=== PATIENT | male | born 1935 | race Caucasian/White ===

== ENCOUNTER 2017-11-24 05:40 | Inpatient (IN) | payer MEDICARE ==
[~2017-11-24] VITALS: Ht 177.8 cm; Wt 117.9 kg
[2017-11-24] MEDS ORDERED: ONDANSETRON HCL 4 MG/2 ML VIAL ONE (06:28)
[2017-11-24 06:29] LABS: BASOPHILS % (AUTO) 0.1 % (0.0-5.0); HEMATOCRIT 48.7 % (42-54); LYMPHOCYTES % (AUTO) 6.1 % (21.0-51.0); MEAN CORPUSCULAR HEMOGLOBIN 32.8 pg (27.0-33.0); MEAN CORPUSCULAR HGB CONC 34.5 g/dL (32.0-36.0); MEAN CORPUSCULAR VOLUME 95.1 fL (79-99); MONOCYTES % (AUTO) 20.9 % (3.0-13.0); NEUTROPHILS % (AUTO) 72.9 % (40.0-77.0); NUCLEATED RED BLOOD CELLS 0.1 % (0.0-0.19); PLATELET COUNT (AUTO) 246 K/uL (130-400); RED BLOOD CELL COUNT(AUTO) 5.12 MIL/uL (4.50-6.20); RED CELL DISTRIBUTION WIDTH 13.7 % (11.0-15.5)
[2017-11-24] MEDS ORDERED: CHLORPROMAZINE HCL 25 MG/ML 1ML AMP ONE (06:29)
[2017-11-24] MEDS ORDERED: MORPHINE SULFATE 4 MG/1ML SYG ONE ×2 (06:30→07:53)
[2017-11-24 06:37] LABS: CREATININE 1.8 mg/dL (0.5-1.5); POTASSIUM 4.1 mmol/L (3.5-5.1)
[2017-11-24 06:42] LABS: ALBUMIN 3.8 g/dL (3.5-5.0); BILIRUBIN,TOTAL 0.8 mg/dL (0.2-1.0); TOTAL PROTEIN, SERUM 8.1 g/dL (6.0-8.3)
[2017-11-24] MEDS ORDERED: SODIUM CHLORIDE 0.9% 1000ML 1,000 ML IV ONE (11:11)
[2017-11-24] MEDS ORDERED: MAG HYDROX/AL HYDROX/SIMETH ES 30 ML SUSP UDCUP PO PRN (11:30)
[2017-11-24] MEDS ORDERED: LIDOCAINE HCL-MPF 1% 2ML VIAL IVP PRN (11:30)
[2017-11-24] MEDS ORDERED: NITROGLYCERIN 0.4 MG SL TAB SL PRN (11:30)
[2017-11-24] MEDS ORDERED: ACETAMINOPHEN 325 MG TAB PO PRN ×2 (11:30)
[2017-11-24] MEDS ORDERED: GUAIFENESIN-DM 200/20 MG 10 ML PO PRN (11:30)
[2017-11-24] MEDS ORDERED: POTASSIUM CHLORIDE 20MEQ/100ML 100 ML IV PRN (11:30)
[2017-11-24] MEDS ORDERED: HYDRALAZINE HCL 20 MG/ML VIAL IV PRN (11:30)
[2017-11-24] MEDS ORDERED: LACTULOSE 20 GM/30 ML UDCUP PO PRN (11:30)
[2017-11-24] MEDS ORDERED: MORPHINE SULFATE 2 MG/ML 1ML SYG IV PRN (11:30)
[2017-11-24] MEDS ORDERED: ONDANSETRON HCL 4 MG/2 ML VIAL IV PRN (11:30)
[2017-11-24] MEDS ORDERED: POTASSIUM CHLORIDE 10% ELIXIR 20 MEQ/15 ML UDCUP PO PRN (11:30)
[2017-11-24] MEDS ORDERED: ACETAMINOPHEN-CODEINE 300/30MG TAB PO PRN ×2 (11:30)
[2017-11-24] MEDS ORDERED: MORPHINE SULFATE 4 MG/1ML SYG IV PRN (11:30)
[2017-11-24] MEDS ORDERED: DIATR MEGLU/DIATRIZOATE SODIUM 30 ML BOTTLE PO ONE (11:52)
[2017-11-24 12:52] VITALS: BP 117/57
[2017-11-24] MEDS ORDERED: FUROSEMIDE 10 MG/ML 2ML VIAL ONE (14:56)
[2017-11-24 16:00] VITALS: BP 120/72
[2017-11-24 19:34] VITALS: BP 132/73
[2017-11-24] MEDS: LEVOFLOXACIN 500 MG/D5W 100 ML 100 ML IV SCH (20:32)
[2017-11-24] MEDS: SODIUM CHLORIDE 0.9% 1000ML 1,000 ML IV SCH (20:32)
[2017-11-24] MEDS: FAMOTIDINE/PF 20 MG/2 ML VIAL IV SCH (20:32)
[2017-11-24] MEDS: METRONIDAZOLE 500MG/100ML BAG 100 ML IV SCH (22:45)
[2017-11-24 23:23] VITALS: BP 125/70
[2017-11-25 01:32] LABS: APPEARANCE,URINE Clear (CLEAR); BILIRUBIN,URINE Negative (NEGATIVE); COLOR,URINE Yellow (YELLOW); GLUCOSE, URINE (UA) Negative (NEGATIVE); KETONES,URINE Negative (NEGATIVE); LEUKOCYTE ESTERASE ,URINE Negative (NEGATIVE); NITRATE,URINE Negative (NEGATIVE); OCCULT BLOOD,URINE Nonhemolyzed Trace (NEGATIVE); PROTEIN,URINE Trace (NEGATIVE)
[2017-11-25 02:07] LABS: BACTERIA,URINE None Seen /HPF (None Seen); MUCUS,URINE Moderate LPF (None Seen); RBC,URINE 0-1 /HPF (0-1); SQUAMOUS EPITHELIAL CELL,UR Few /LPF (0-2); WBC,URINE 0-1 /HPF (0-1)
[2017-11-25 03:55] VITALS: BP 120/66
[2017-11-25 05:56] LABS: HEMATOCRIT 42.5 % (42-54); MEAN CORPUSCULAR HEMOGLOBIN 32.5 pg (27.0-33.0); MEAN CORPUSCULAR HGB CONC 34.3 g/dL (32.0-36.0); MEAN CORPUSCULAR VOLUME 94.9 fL (79-99); PLATELET COUNT (AUTO) 185 K/uL (130-400); RED BLOOD CELL COUNT(AUTO) 4.48 MIL/uL (4.50-6.20); RED CELL DISTRIBUTION WIDTH 13.6 % (11.0-15.5); WHITE BLOOD COUNT (AUTO) 7.5 K/uL (4.8-10.8)
[2017-11-25 06:12] LABS: CREATININE 1.2 mg/dL (0.5-1.5); MAGNESIUM 2.1 mg/dL (1.80-2.40); PHOSPHORUS 2.8 mg/dL (2.5-4.9)
[2017-11-25] MEDS: SODIUM CHLORIDE 0.9% 1000ML 1,000 ML IV SCH ×2 (06:38→17:16)
[2017-11-25] MEDS: METRONIDAZOLE 500MG/100ML BAG 100 ML IV SCH ×3 (06:38→23:15)
[2017-11-25 07:46] VITALS: BP 137/68
[2017-11-25] MEDS: FAMOTIDINE/PF 20 MG/2 ML VIAL IV SCH ×2 (09:08→23:15)
[2017-11-25] MEDS: ENOXAPARIN SODIUM 40 MG/0.4 ML SYRINGE SQ SCH (09:19)
[2017-11-25 10:56] VITALS: BP 131/66
[2017-11-25 16:47] VITALS: BP 128/75
[2017-11-25 19:30] VITALS: BP 138/68
[2017-11-25 23:20] VITALS: BP 137/68
[2017-11-26] MEDS: SODIUM CHLORIDE 0.9% 1000ML 1,000 ML IV SCH ×2 (03:09→12:50)
[2017-11-26 03:25] VITALS: BP 148/70
[2017-11-26] MEDS: METRONIDAZOLE 500MG/100ML BAG 100 ML IV SCH ×3 (05:46→23:16)
[2017-11-26] MEDS ORDERED: ISOS20TA7 PO (07:45)
[2017-11-26] MEDS ORDERED: ATOR10 PO (07:45)
[2017-11-26] MEDS ORDERED: EZET10TA26 PO (07:45)
[2017-11-26] MEDS ORDERED: LISI2.5T2 PO (07:45)
[2017-11-26] MEDS ORDERED: MIRT15TA6 PO (07:45)
[2017-11-26] MEDS ORDERED: OMEP20TA25 PO (07:45)
[2017-11-26] MEDS ORDERED: NEBI10TA PO (07:45)
[2017-11-26] MEDS ORDERED: IPRA42SP NS (07:45)
[2017-11-26] MEDS ORDERED: AMLO10TA2 PO (07:45)
[2017-11-26 07:58] VITALS: BP 122/82
[2017-11-26] MEDS: FAMOTIDINE/PF 20 MG/2 ML VIAL IV SCH ×2 (08:27→21:41)
[2017-11-26] MEDS: ENOXAPARIN SODIUM 40 MG/0.4 ML SYRINGE SQ SCH (08:27)
[2017-11-26] MEDS ORDERED: MAGNESIUM 2GM PREMIX 50ML 50 ML IV SCH (09:45)
[2017-11-26 10:06] LABS: POTASSIUM 3.9 mmol/L (3.5-5.1)
[2017-11-26 11:06] VITALS: BP 121/67
[2017-11-26] MEDS: DEXTROSE 5 %-0.45 % NACL 1,000 ML IV SCH (12:50)
[2017-11-26 15:59] VITALS: BP 121/76
[2017-11-26 19:20] VITALS: BP 156/88
[2017-11-26] MEDS: LEVOFLOXACIN 500 MG/D5W 100 ML 100 ML IV SCH (21:41)
[2017-11-26 23:30] VITALS: BP 121/76
[2017-11-27] VITALS (22 sets, daily range): BP systolic 110–162; BP diastolic 62–81
[2017-11-27 05:14] LABS: HEMATOCRIT 42.1 % (42-54); MEAN CORPUSCULAR HEMOGLOBIN 32.5 pg (27.0-33.0); MEAN CORPUSCULAR HGB CONC 34.3 g/dL (32.0-36.0); MEAN CORPUSCULAR VOLUME 94.8 fL (79-99); PLATELET COUNT (AUTO) 201 K/uL (130-400); RED BLOOD CELL COUNT(AUTO) 4.44 MIL/uL (4.50-6.20); RED CELL DISTRIBUTION WIDTH 13.2 % (11.0-15.5); WHITE BLOOD COUNT (AUTO) 10.7 K/uL (4.8-10.8)
[2017-11-27 05:20] LABS: PARTIAL THROMBOPLASTIN TIME 28.7 SEC (26.3-35.5); PROTHROMBIN TIME 10.5 SEC (9.6-11.6)
[2017-11-27 05:21] LABS: CREATININE 0.9 mg/dL (0.5-1.5); MAGNESIUM 2.1 mg/dL (1.80-2.40); PHOSPHORUS 2.7 mg/dL (2.5-4.9); POTASSIUM 3.4 mmol/L (3.5-5.1)
[2017-11-27] MEDS: DEXTROSE 5 %-0.45 % NACL 1,000 ML IV SCH ×3 (08:14→23:37)
[2017-11-27] MEDS: FAMOTIDINE/PF 20 MG/2 ML VIAL IV SCH ×2 (08:14→23:37)
[2017-11-27] MEDS: METRONIDAZOLE 500MG/100ML BAG 100 ML IV SCH ×3 (08:14→22:05)
[2017-11-27] MEDS: ENOXAPARIN SODIUM 40 MG/0.4 ML SYRINGE SQ SCH ×2 (08:16→09:00)
[2017-11-27] MEDS ORDERED: MIDAZOLAM HCL 1 MG/ML 2ML VIAL ONE (18:45)
[2017-11-27] MEDS ORDERED: GLYCOPYRROLATE 0.2 MG/ML 5 ML VIAL ONE (18:45)
[2017-11-27] MEDS ORDERED: LIDOCAINE PF 2% 5ML ABBOJECT ONE (18:45)
[2017-11-27] MEDS ORDERED: NEOSTIGMINE METHYLSULFATE 1MG/ML IV ONE (18:45)
[2017-11-27] MEDS ORDERED: PROPOFOL 10 MG/ML 20ML VIAL IV ONE (18:45)
[2017-11-27] MEDS ORDERED: ONDANSETRON HCL 4 MG/2 ML VIAL ONE (18:45)
[2017-11-27] MEDS ORDERED: SUCCINYLCHOLINE 200MG/10ML SYR ONE (18:45)
[2017-11-27] MEDS ORDERED: DEXAMETHASONE SOD PHOSPHATE 10MG/ML 1ML VIAL ONE (18:45)
[2017-11-27] MEDS ORDERED: FENTANYL CITRATE PF 50 MCG/1 ML 2ML VIAL ONE ×2 (18:46→19:54)
[2017-11-28] VITALS (8 sets, daily range): BP systolic 137–165; BP diastolic 73–85
[2017-11-28 04:54] LABS: BASOPHILS % (AUTO) 0.3 % (0.0-5.0); HEMATOCRIT 43.7 % (42-54); MEAN CORPUSCULAR HEMOGLOBIN 32.6 pg (27.0-33.0); MEAN CORPUSCULAR HGB CONC 34.1 g/dL (32.0-36.0); MEAN CORPUSCULAR VOLUME 95.8 fL (79-99); MONOCYTES % (AUTO) 4.2 % (3.0-13.0); NEUTROPHILS % (AUTO) 93.5 % (40.0-77.0); PLATELET COUNT (AUTO) 208 K/uL (130-400); RED BLOOD CELL COUNT(AUTO) 4.56 MIL/uL (4.50-6.20); RED CELL DISTRIBUTION WIDTH 13.3 % (11.0-15.5); WHITE BLOOD COUNT (AUTO) 14.3 K/uL (4.8-10.8)
[2017-11-28 05:07] LABS: ALBUMIN 2.8 g/dL (3.5-5.0); TOTAL PROTEIN, SERUM 6.7 g/dL (6.0-8.3)
[2017-11-28] MEDS: METRONIDAZOLE 500MG/100ML BAG 100 ML IV SCH ×3 (06:43→23:59)
[2017-11-28] MEDS: FAMOTIDINE/PF 20 MG/2 ML VIAL IV SCH ×2 (09:15→20:35)
[2017-11-28] MEDS: DEXTROSE 5 %-0.45 % NACL 1,000 ML IV SCH (15:26)
[2017-11-28] MEDS: ENOXAPARIN SODIUM 40 MG/0.4 ML SYRINGE SQ SCH (18:57)
[2017-11-28] MEDS: LEVOFLOXACIN 500 MG/D5W 100 ML 100 ML IV SCH (20:35)
[2017-11-29 00:11] VITALS: BP 136/77
[2017-11-29 04:24] LABS: HEMATOCRIT 42.8 % (42-54); MEAN CORPUSCULAR HEMOGLOBIN 32.2 pg (27.0-33.0); MEAN CORPUSCULAR HGB CONC 33.8 g/dL (32.0-36.0); MEAN CORPUSCULAR VOLUME 95.2 fL (79-99); PLATELET COUNT (AUTO) 204 K/uL (130-400); RED BLOOD CELL COUNT(AUTO) 4.49 MIL/uL (4.50-6.20); RED CELL DISTRIBUTION WIDTH 13.3 % (11.0-15.5); WHITE BLOOD COUNT (AUTO) 12.7 K/uL (4.8-10.8)
[2017-11-29 04:37] VITALS: BP 141/64
[2017-11-29 04:40] LABS: POTASSIUM 3.4 mmol/L (3.5-5.1)
[2017-11-29 07:00] VITALS: BP 148/81
[2017-11-29] MEDS: POTASSIUM CHLORIDE 20 MEQ ERTAB PO PRN (07:45)
[2017-11-29] MEDS: METRONIDAZOLE 500MG/100ML BAG 100 ML IV SCH ×3 (07:46→20:35)
[2017-11-29] MEDS: FAMOTIDINE/PF 20 MG/2 ML VIAL IV SCH ×2 (09:30→20:34)
[2017-11-29] MEDS: ENOXAPARIN SODIUM 40 MG/0.4 ML SYRINGE SQ SCH (09:31)
[2017-11-29 11:00] VITALS: BP 135/71
[2017-11-29 16:00] VITALS: BP 124/78
[2017-11-29 20:00] VITALS: BP 134/56
[2017-11-29] MEDS: MIRTAZAPINE 15 MG TABLET PO SCH (20:34)
[2017-11-29] MEDS: ATORVASTATIN CALCIUM 10 MG TABLET PO SCH (20:34)
[2017-11-29] MEDS: ISOSORBIDE MONONITRATE 20 MG TABLET PO SCH (20:34)
[2017-11-30] VITALS: BP 122/60
[2017-11-30 04:00] VITALS: BP 140/82
[2017-11-30 04:40] LABS: POTASSIUM 3.2 mmol/L (3.5-5.1)
[2017-11-30] MEDS: METRONIDAZOLE 500MG/100ML BAG 100 ML IV SCH ×3 (05:45→20:48)
[2017-11-30 07:00] VITALS: BP 140/85
[2017-11-30] MEDS ORDERED: EZETIMIBE 10 MG TAB PO SCH (09:00)
[2017-11-30] MEDS: FAMOTIDINE/PF 20 MG/2 ML VIAL IV SCH ×2 (09:02→20:48)
[2017-11-30] MEDS: ENOXAPARIN SODIUM 40 MG/0.4 ML SYRINGE SQ SCH (09:03)
[2017-11-30] MEDS: NEBIVOLOL HCL 20 MG TABLET PO SCH (09:03)
[2017-11-30] MEDS: AMLODIPINE BESYLATE 5 MG TAB PO SCH (09:03)
[2017-11-30] MEDS: LISINOPRIL 2.5 MG TABLET PO SCH (09:03)
[2017-11-30 11:00] VITALS: BP 142/70
[2017-11-30 16:00] VITALS: BP 130/74
[2017-11-30] MEDS: MIRTAZAPINE 15 MG TABLET PO SCH (20:48)
[2017-11-30] MEDS: ATORVASTATIN CALCIUM 10 MG TABLET PO SCH (20:48)
[2017-11-30] MEDS: LEVOFLOXACIN 500 MG/D5W 100 ML 100 ML IV SCH (20:48)
[2017-11-30] MEDS: ISOSORBIDE MONONITRATE 20 MG TABLET PO SCH (20:48)
[2017-11-30] MEDS: EZETIMIBE 10 MG TAB PO SCH (20:50)
[2017-11-30 21:25] VITALS: BP 116/69
[2017-12-01] VITALS (7 sets, daily range): BP systolic 117–147; BP diastolic 62–79
[2017-12-01] MEDS: METRONIDAZOLE 500MG/100ML BAG 100 ML IV SCH ×3 (05:19→21:42)
[2017-12-01 05:50] LABS: CREATININE 0.9 mg/dL (0.5-1.5); POTASSIUM 3.4 mmol/L (3.5-5.1)
[2017-12-01] MEDS: AMLODIPINE BESYLATE 5 MG TAB PO SCH (09:11)
[2017-12-01] MEDS: LISINOPRIL 2.5 MG TABLET PO SCH (09:12)
[2017-12-01] MEDS: ENOXAPARIN SODIUM 40 MG/0.4 ML SYRINGE SQ SCH (09:12)
[2017-12-01] MEDS: NEBIVOLOL HCL 20 MG TABLET PO SCH (09:12)
[2017-12-01] MEDS: FAMOTIDINE/PF 20 MG/2 ML VIAL IV SCH ×2 (09:12→20:39)
[2017-12-01] MEDS: POTASSIUM CHLORIDE 20 MEQ ERTAB PO PRN ×2 (09:13→14:10)
[2017-12-01] MEDS: ISOSORBIDE MONONITRATE 20 MG TABLET PO SCH (20:38)
[2017-12-01] MEDS: ATORVASTATIN CALCIUM 10 MG TABLET PO SCH (20:38)
[2017-12-01] MEDS: MIRTAZAPINE 15 MG TABLET PO SCH (20:39)
[2017-12-01] MEDS: EZETIMIBE 10 MG TAB PO SCH (20:39)
[2017-12-02 04:00] VITALS: BP 144/77
[2017-12-02] MEDS: METRONIDAZOLE 500MG/100ML BAG 100 ML IV SCH ×2 (05:13→14:42)
[2017-12-02 07:30] VITALS: BP 136/87
[2017-12-02] MEDS: ENOXAPARIN SODIUM 40 MG/0.4 ML SYRINGE SQ SCH (09:00)
[2017-12-02] MEDS: FAMOTIDINE/PF 20 MG/2 ML VIAL IV SCH (09:40)
[2017-12-02] MEDS: AMLODIPINE BESYLATE 5 MG TAB PO SCH (09:40)
[2017-12-02] MEDS: LISINOPRIL 2.5 MG TABLET PO SCH (09:41)
[2017-12-02] MEDS: NEBIVOLOL HCL 20 MG TABLET PO SCH (09:41)
[2017-12-02 11:00] VITALS: BP 113/62
[2017-12-02 16:00] VITALS: BP 115/66
== END 2017-12-02 16:55 | disposition home or self-care (01) | DRG 354 ==
LOC: EDH 05:40 → EDHIP 09:30 → 3DH 12:41
PROVIDERS: ADMIT Internal Medicine; ATTEND Internal Medicine
PROC: 0WUF0JZ Supplement Abdominal Wall with Synthetic Substitute, Open Approach (ICD-10-PCS; principal; 2017-11-27 19:11)
DX: K56.609 Unspecified intestinal obstruction, unspecified as to partial versus complete obstruction (principal); N17.9 Acute kidney failure, unspecified; K43.9 Ventral hernia without obstruction or gangrene; E78.5 Hyperlipidemia, unspecified; I10 Essential (primary) hypertension; I25.10 Atherosclerotic heart disease of native coronary artery without angina pectoris; K66.0 Peritoneal adhesions (postprocedural) (postinfection); Z95.0 Presence of cardiac pacemaker; Z88.0 Allergy status to penicillin; Z82.49 Family history of ischemic heart disease and other diseases of the circulatory system
CPT/HCPCS: 36415; 71045; 74021; 74176; 80048; 80053; 81001; 82150; 83690; 83735; 84100; 84484; 85025; 85027; 85610; 85730; 93005; A4344; J0330; J1100; J1650; J1940; J1956; J2001; J2250; J2270; J2405; J2704; J2710; J3010; J3230; J3490; J7030; J7042; Q9963

== ENCOUNTER 2020-09-25 11:04 | Emergency (ER) | payer MEDICARE ==
[~2020-09-25 11:04] MED LIST: AMLO-258 PO; ATOR10 PO; EZET10TA48 PO; IPRA42SP NS; ISOS20TA7 PO; LISI2.5T2 PO; MIRT15TA6 PO; NEBI10TA PO; OMEP20TA25 PO
[2020-09-25] MEDS ORDERED: TRAMADOL HCL 50 MG TABLET ONE (11:42)
[2020-09-25] MEDS ORDERED: ACETAMINOPHEN 325 MG TAB ONE (11:42)
[2020-09-25] MEDS ORDERED: NEOMY SULF/BACITRA/POLYMYXIN B 1 EACH PACKET TP ONE (12:15)
== END 2020-09-25 14:38 | disposition home or self-care (01) ==
LOC: EDH 11:04
DX: S52.532A Colles' fracture of left radius, initial encounter for closed fracture (principal); S52.612A Displaced fracture of left ulna styloid process, initial encounter for closed fracture; S50.01XA Contusion of right elbow, initial encounter; S00.33XA Contusion of nose, initial encounter; I50.9 Heart failure, unspecified; E78.5 Hyperlipidemia, unspecified; I10 Essential (primary) hypertension; Z88.0 Allergy status to penicillin; W18.39XA Other fall on same level, initial encounter; Y93.01 Activity, walking, marching and hiking; Y92.89 Other specified places as the place of occurrence of the external cause; Y99.8 Other external cause status
CPT/HCPCS: 29125; 70450; 70486; 72125; 73110

== ENCOUNTER → 2021-12-26 | Outpatient (CLI) | payer MEDICARE ==
[~2021-12-26] MED LIST changes: -ISOS20TA7 PO; +ISOS20TA85 PO; +LISI2.5T13 PO; -LISI2.5T2 PO; +MIRT-22 PO; -MIRT15TA6 PO
== END | disposition home or self-care (01) ==
LOC: RAH 13:59
PROVIDERS: ATTEND Nurse Practitioner Family
DX: S02.2XXA Fracture of nasal bones, initial encounter for closed fracture (principal); S00.83XA Contusion of other part of head, initial encounter; J34.89 Other specified disorders of nose and nasal sinuses; M47.812 Spondylosis without myelopathy or radiculopathy, cervical region; M48.02 Spinal stenosis, cervical region; M25.78 Osteophyte, vertebrae; X58.XXXA Exposure to other specified factors, initial encounter; Y93.89 Activity, other specified; Y92.89 Other specified places as the place of occurrence of the external cause; Y99.8 Other external cause status
CPT/HCPCS: 70450; 70486; 72125

== ENCOUNTER → 2022-11-23 | Outpatient (CLI) | payer MEDICARE ==
[~2022-11-23] MED LIST changes: +OMEP20TA20 PO; -OMEP20TA25 PO; +REGADENOSON 0.4 MG/5 ML PF SYG IVP SCH
== END | disposition home or self-care (01) ==
LOC: RAH 08:42
PROVIDERS: ATTEND Internal Medicine Cardiovascular Disease
DX: R06.02 Shortness of breath (principal); I25.9 Chronic ischemic heart disease, unspecified; Z95.0 Presence of cardiac pacemaker
CPT/HCPCS: 78452; 96374; 93017; J2785; A9500 ×2

== ENCOUNTER → 2023-04-17 | Outpatient (CLI) | payer MEDICARE ==
[~2023-04-17] MED LIST changes: -REGADENOSON 0.4 MG/5 ML PF SYG IVP SCH
== END | disposition home or self-care (01) ==
LOC: RAH 14:12
PROVIDERS: ATTEND Family Medicine
DX: M17.11 Unilateral primary osteoarthritis, right knee (principal); M25.461 Effusion, right knee
CPT/HCPCS: 73560

== ENCOUNTER 2025-02-26 13:35 | Emergency (ER) | payer MEDICARE ==
[~2025-02-26] VITALS: Ht 175.3 cm; Wt 108.9 kg
[~2025-02-26 13:35] MED LIST changes: +AEC81 PO; -AMLO-258 PO; +CARV25TA PO; +DILT60TA3 PO; -IPRA42SP NS; -ISOS20TA85 PO; -LISI2.5T13 PO; -MIRT-22 PO; -NEBI10TA PO; -OMEP20TA20 PO
--- NOTE | 2025-02-26 14:46 | HMCIMG ---
WRIST COMP 3+VWS LT HISTORY: Status post fall COMPARISON: None TECHNIQUE: 3 images of the left wrist were obtained. FINDINGS: Orthopedic fixation plates and screws are seen traversing the distal radius. There is bone densities in the distal ulna may be related to old fracture fragment. There is no acute displaced fracture or dislocation. There is soft tissue swelling. Radiocarpal joint space narrowing seen. Degenerative changes are seen. IMPRESSION: 1. Findings as described above.
--- NOTE | 2025-02-26 14:49 | HMCIMG ---
ELBOW COMP 3+VWS LT HISTORY: Status post fall COMPARISON: None TECHNIQUE: 3 images of the left elbow were obtained. FINDINGS: There is no acute displaced fracture or dislocation. There is soft tissue swelling. Degenerative changes are seen. IMPRESSION: 1. Findings as described above.
--- NOTE | 2025-02-26 15:43 | HMCIMG ---
CT HEAD/BRAIN W/O CONTRAST HISTORY: Status post fall COMPARISON: None TECHNIQUE: Multiple sequential axial images of the head were obtained from the base of the skull through vertex. Patient was not given contrast through intravenous route. FINDINGS: The ventricles and extraventricular CSF spaces are dilated consistent with cerebral atrophy. Nonspecific white matter changes seen. There is no midline shift, mass effect or herniation. No acute intracranial bleed is seen. Visualized portion of the paranasal sinuses are grossly within normal limits. IMPRESSION: 1. No acute intracranial bleed is seen. 2. Atrophy with white matter changes. CT was performed with one or more following dose reduction techniques: automated exposure control, adjustment of the mA and kv according to patient's size, or use of a iterative reconstruction technique.
--- NOTE | 2025-02-26 15:58 | HMCIMG ---
CT CHEST/ABD/PELV W/O CONTRAST HISTORY: Status post fall COMPARISON: None TECHNIQUE: Multiple sequential axial images of the chest were obtained from the thoracic inlet through upper abdomen. Patient was not given contrast through intravenous route. FINDINGS: There are mild interstitial fibrosis. There is no evidence of pulmonary nodule or parenchymal disease. No pleural effusion or pericardial effusion is seen. There is no evidence of pneumothorax. There are normal size mediastinal and hilar lymph nodes. The heart is borderline enlarged. Degenerative changes of the thoracolumbar spine are present. There is compression fracture involving T11 with 70% loss of height. There is no evidence of adrenal nodule. Tortuosity of aorta is seen. Coronary artery calcifications. IMPRESSION: 1. No evidence of pulmonary nodule or effusion is seen. CT CHEST/ABD/PELV W/O CONTRAST HISTORY: Status post fall COMPARISON: None TECHNIQUE: Multiple sequential axial images of the abdomen and pelvis were obtained from the dome of the diaphragm through symphysis pubis. Patient was not given contrast through intravenous route. Oral contrast was not given. FINDINGS: There is T11 compression fracture with 70% of height. Liver measures 17 cm. Gallstone is seen in the gallbladder. There is a small. There is left posterior renal cyst measuring 2 cm. There is diverticulosis. The liver, spleen, adrenal glands and pancreas are unremarkable. There is no evidence of hydronephrosis bilaterally. No evidence of renal stone is seen. Fecal material is seen in the colon. There are normal size retroperitoneal and mesenteric lymph nodes. No ascites is seen. Atherosclerotic changes are present. Pelvic sidewalls are symmetric bilaterally. Bladder is well distended without wall thickening. Prostate gland is enlarged measuring 6 x 5.2 cm. IMPRESSION: 1. Gallstone is seen in the gallbladder. Diverticulosis. No ascites CT was performed with one or more following dose reduction techniques: automated exposure control, adjustment of the mA and kv according to patient's size, or use of a iterative reconstruction technique.
[2025-02-26 16:14] VITALS: BP 155/86; PULSE 76; RESP 18; TEMP 97.3; O2SAT 94
--- NOTE | 2025-02-26 16:23 | ERN ---
General Chief Complaint: Mechanical Fall Stated Complaint: FALL Time Seen by MD: 13:36 Time Seen by Midlevel: 13:36 Source: patient History of Present Illness Initial Comments The patient is an 89-year-old male presenting to the emergency department for evaluation following a mechanical ground level fall. Patient was walking out of a restaurant when he accidentally tripped over a curb landing on his left side. He does report head injury but denies any loss of consciousness. Denies being on blood thinners. Patient's main concern is pain to the left side of his chest. Allergies: Coded Allergies: Penicillins (Unverified Allergy, Mild, 11/24/17) Home Meds Reported Medications Aspirin (ASPIRIN 81 MG ECTAB) 81 Mg Ectab, 81 MG PO DAILY, TAB.EC 05/29/23 Carvedilol (Carvedilol) 25 Mg Tablet, 25 MG PO BID, TAB 05/29/23 Diltiazem HCl (Diltiazem HCl) 60 Mg Tablet, 60 MG PO BID, TAB 05/29/23 Atorvastatin Calcium (LIPITOR) 10 Mg Tab, 10 MG PO HS, TAB 11/26/17 Ezetimibe (Ezetimibe) 10 Mg Tablet, 10 MG PO DAILY, TAB 11/26/17 Past Medical History Past Medical History: High Cholesterol, Hypertension Past Surgical History: Pacer/AICD Social History Social History: Lives with family, Other ROS Dictation CONSTITUTIONAL: Negative except for HPI HEAD/FACE: Negative except for HPI EENT: Negative except for HPI RESPIRATORY: Negative except for HPI GASTROINTESTINAL/ABDOMINAL: Negative except for HPI GENITOURINARY: Negative except for HPI MUSCULOSKELETAL: Negative except for HPI INTEGUMENTARY: Negative except for HPI NEUROLOGICAL/PSYCH: Negative except for HPI HEMATOLOGIC/LYMPHATIC: Negative except for HPI All Systems Negative, Except as noted above. 13 point review of systems assessed and all negative except for above. Physical Exam Physical Exam Dictation Vital Signs reviewed General Appearance: Alert, oriented x 3, no acute distress, well developed, n ourished. Head and Face: non-traumatic. Eyes: PERRL, pink conjunctivas, eyelid no trauma, anterior chamber with arcus senilis. Ears: Pinnas intact and no signs of trauma or erythema ear canals clear and no discharge TM no erythema Nose: No discharge, no bleeding. Oropharynx: Mouth normal, tongue pink, pharynx clear,no erythema, tonsils no exudates, no abscesses noted, mucous membrane moist Neck: Supple, non-tender, no thyromegaly, no masses, no JVD, no bruits Breast:Deferred Chest:No tenderness, no crepitus, no paradoxical movement, no retractions Lungs:Clear, well-ventilated, symmetric, no rales, no wheezing, no rhonchi, no stridor, good breath sounds bilaterally Heart: Regular rate, regular rhythm, no murmur, no gallops Vascular: no peripheral edema, Abdomen: Soft, positive bowel sounds, nondistended, no guarding, nontender, no rebound, no masses no hepatomegaly, no splenomegaly, no Danielson's sign, no hernias. Rectal: Deferred Genital: Deferred Neurological: Normal speech, motor function intact, sensory function intact Musculoskeletal: Neck nontender, full range of motion, back nontender, full range of motion, Extremities: nontender, full range of motion, abrasion to the left distal wrist, left elbow abrasion Skin: Color pink, dry, no turgor, no rash, no lacerations Lymphatic: Deferred MDM MDM: The patient is an 89-year-old male presenting to the emergency department for evaluation following a mechanical ground level fall. Patient was walking out of a restaurant when he accidentally tripped over a curb landing on his left side. He does report head injury but denies any loss of consciousness. Denies being on blood thinners. Patient's main concern is pain to the left side of his chest. On physical examination there is tenderness over the left side of the chest wall with no crepitus or paradoxical movements noted. There was an abrasion to the left elbow and left wrist. However, range of motion is intact. Patient was in no acute respiratory distress. Initial vital signs are stable. Given age and clinical presentation a CT scan of the head, chest/abdomen/pelvis was obtained which does not reveal any acute fracture or dislocation. CT head reveals no acute intracranial bleed or skull fracture. X-rays of the left elbow and left wrist did not show any acute fracture or dislocation. The patient was offered pain medication in the emergency department but he was refusing. We will discharged home with supportive management. Return precautions discussed Differential diagnosis: Abrasion, contusion, intracranial bleed, There are no social concerns with this patient. Prescription drug management Prescriptions will include: None Medical management and examination interpretation discussions were had by me with other qualified healthcare professionals as indicated for the patient's care. ED Course Orders Procedure Category Date Status Time 12 Lead Ekg Tracing- EKG 02/26/25 Logged Technical 13:57 Ct Head/Brain W/O CT 02/26/25 Resulted Contrast 13:57 Ct Chest/Abd/Pelv W/O CT 02/26/25 Resulted Contrast 13:57 Elbow Comp 3+Vws Lt RAD 02/26/25 Resulted 13:57 Wrist Comp 3+Vws Lt RAD 02/26/25 Resulted 13:57 Vital Signs Date Time Temp Pulse Resp B/P (MAP) Pulse Ox O2 Delivery O2 Flow Rate FiO2 02/26/25 16:14 97.3 76 18 155/86 94 Room Air* 0 21 02/26/25 15:05 78 18 165/78 96 Room Air* 0 21 02/26/25 13:46 97.3 71 20 125/75 96 Room Air 0 [place] [address] [address] IMAGING REPORT Signed PATIENT: KRISTIAN ALLEN MR#: [id number] : 1935 SEX: M AGE: 89 LOCATION: EDH ORDER STATUS: REG [facility] REPORT#: [id number] SERVICE 1357 REASON: fall ORDERING PHYSICIAN: ELLIS ORTEGA PROCEDURE: WRST 3V LT - WRIST COMP 3+VWS LT WRIST COMP 3+VWS LT HISTORY: Status post fall COMPARISON: None TECHNIQUE: 3 images of the left wrist were obtained. FINDINGS: Orthopedic fixation plates and screws are seen traversing the distal radius. There is bone densities in the distal ulna may be related to old fracture fragment. There is no acute displaced fracture or dislocation. There is soft tissue swelling. Radiocarpal joint space narrowing seen. Degenerative changes are seen. IMPRESSION: 1. Findings as described above. DICTATED BY: ALBERTO OLEARY MD DATE: 02/26/251440 ELECTRONICALLY SIGNED BY: ALBERTO OLEARY MD DATE: 02/26/251445 [place] [address] [id number] IMAGING REPORT Signed PATIENT: KRISTIAN ALLEN MR#: [id number] : 1935 SEX: M AGE: 89 LOCATION: ED ORDER 57 STATUS: REG ER REPORT#: [id number] SERVICE 56 REASON: fall ORDERING PHYSICIAN: ELLIS ORTEGA PROCEDURE: HEAD WO - CT HEAD/BRAIN W/O CONTRAST CT HEAD/BRAIN W/O CONTRAST HISTORY: Status post fall COMPARISON: None TECHNIQUE: Multiple sequential axial images of the head were obtained from the base of the skull through vertex. Patient was not given contrast through intravenous route. FINDINGS: The ventricles and extraventricular CSF spaces are dilated consistent with cerebral atrophy. Nonspecific white matter changes seen. There is no midline shift, mass effect or herniation. No acute intracranial bleed is seen. Visualized portion of the paranasal sinuses are grossly within normal limits. IMPRESSION: 1. No acute intracranial bleed is seen. 2. Atrophy with white matter changes. CT was performed with one or more following dose reduction techniques: automated exposure control, adjustment of the mA and kv according to patient's size, or use of a iterative reconstruction technique. DICTATED BY: ALBERTO OLEARY MD DATE: 02/26/254 ELECTRONICALLY SIGNED BY: ALBERTO OLEARY MD DATE: 02/26/25 1543 [facility] [address] [address] IMAGING REPORT Signed PATIENT: KRISTIAN ALLEN MR#: [id number] : 1935 SEX: M AGE: 89 LOCATION: ED ORDER 57 STATUS: REG ER [facility] REPORT#: [id number] SERVICE 56 REASON: fall ORDERING PHYSICIAN: ELLIS ORTEGA PROCEDURE: ELB3VW LT - ELBOW COMP 3+VWS LT ELBOW COMP 3+VWS LT HISTORY: Status post fall COMPARISON: None TECHNIQUE: 3 images of the left elbow were obtained. FINDINGS: There is no acute displaced fracture or dislocation. There is soft tissue swelling. Degenerative changes are seen. IMPRESSION: 1. Findings as described above. DICTATED BY: ALBERTO OLEARY MD DATE: 02/26/251443 ELECTRONICALLY SIGNED BY: ALBERTO OLEARY MD DATE: 02/26/251448 [place] [address] [place] [address] IMAGING REPORT Signed PATIENT: KRISTIAN ALLEN MR#: [id number] : 1935 SEX: M AGE: 89 LOCATION: EDH ORDER 57 STATUS: [facility] REPORT#: [id number] SERVICE 56 REASON: fall ORDERING PHYSICIAN: ELLIS ORTEGA PROCEDURE: CAP WO - CT CHEST/ABD/PELV W/O CONTRAST CT CHEST/ABD/PELV W/O CONTRAST HISTORY: Status post fall COMPARISON: None TECHNIQUE: Multiple sequential axial images of the chest were obtained from the thoracic inlet through upper abdomen. Patient was not given contrast through intravenous route. FINDINGS: There are mild interstitial fibrosis. There is no evidence of pulmonary nodule or parenchymal disease. No pleural effusion or pericardial effusion is seen. There is no evidence of pneumothorax. There are normal size mediastinal and hilar lymph nodes. The heart is borderline enlarged. Degenerative changes of the thoracolumbar spine are present. There is compression fracture involving T11 with 70% loss of height. There is no evidence of adrenal nodule. Tortuosity of aorta is seen. Coronary artery calcifications. IMPRESSION: 1. No evidence of pulmonary nodule or effusion is seen. CT CHEST/ABD/PELV W/O CONTRAST HISTORY: Status post fall COMPARISON: None TECHNIQUE: Multiple sequential axial images of the abdomen and pelvis were obtained from the dome of the diaphragm through symphysis pubis. Patient was not given contrast through intravenous route. Oral contrast was not given. FINDINGS: There is T11 compression fracture with 70% of height. Liver measures 17 cm. Gallstone is seen in the gallbladder. There is a small. There is left posterior renal cyst measuring 2 cm. There is diverticulosis. The liver, spleen, adrenal glands and pancreas are unremarkable. There is no evidence of hydronephrosis bilaterally. No evidence of renal stone is seen. Fecal material is seen in the colon. There are normal size retroperitoneal and mesenteric lymph nodes. No ascites is seen. Atherosclerotic changes are present. Pelvic sidewalls are symmetric bilaterally. Bladder is well distended without wall thickening. Prostate gland is enlarged measuring 6 x 5.2 cm. IMPRESSION: 1. Gallstone is seen in the gallbladder. Diverticulosis. No ascites CT was performed with one or more following dose reduction techniques: automated exposure control, adjustment of the mA and kv according to patient's size, or use of a iterative reconstruction technique. DICTATED BY: ALBERTO OLEARY MD DATE: 02/26/251551 ELECTRONICALLY SIGNED BY: ALBERTO OLEARY MD DATE: 02/26/250 DX & DISP Disposition: Discharge Departure Impression: Primary Impression: Fall Additional Impressions: Left wrist sprain, Left elbow contusion Condition: Stable Additional Instructions: Your CT scan of the head, chest abdomen and pelvis is negative. Your left wrist/left elbow x-ray does not show any acute fracture or dislocation. You may take Tylenol and Motrin as needed for pain. Return to the ER for any new or worsening symptoms Referrals: MEHDI HUGHES MD (PCP) Time of Disposition: 16:23 I have reviewed the case, and I agree with, Diagnosis and Plan I performed the substantive portion of the visit. I have reviewed and personally made and approve the management plan that is documented in the note by myself or the ORIANA. I acknowledge for responsibility for the patient's management plan. ELLIS ORTEGA Feb 26, 2025 16:23 CARIDAD LORA DO Feb 26, 2025 17:37
--- NOTE | 2025-02-27 11:31 | EKG ---
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 : 1935 Requested By: ELLIS ORTEGA Order Number: [id number] Reading MD: Annabel Bell Measurements Intervals [place] Rate: 79 P: -79 CT: 234 QRS: -25 QRSD: 92 T: 0 QT: 384 QTc: 440 Interpretive Statements sinus rhythm with first degree AV block Inferior infarct, old Compared to ECG 05/30/2023 05:49:50 First degree AV block now present Atrial premature complex(es) no longer present Ventricular-paced complex(es) or rhythm no longer present Myocardial infarct finding still present Electronically Signed On 02-27-2025 14:37:16 CDT by Annabel Bell Please click the below link to view image of tracing.
== END 2025-02-26 16:26 | disposition home or self-care (01) ==
LOC: EDH 13:35
DX: S63.592A Other specified sprain of left wrist, initial encounter (principal); S50.02XA Contusion of left elbow, initial encounter; E78.00 Pure hypercholesterolemia, unspecified; I10 Essential (primary) hypertension; Z79.82 Long term (current) use of aspirin; Z79.899 Other long term (current) drug therapy; Z88.0 Allergy status to penicillin; Z95.810 Presence of automatic (implantable) cardiac defibrillator; W01.0XXA Fall on same level from slipping, tripping and stumbling without subsequent striking against object, initial encounter; Y93.01 Activity, walking, marching and hiking; Y92.89 Other specified places as the place of occurrence of the external cause; Y99.8 Other external cause status
CPT/HCPCS: 70450; 71250; 73080; 73110; 74176; 93005; 99284